=== PATIENT | male | born 1985 | race Caucasian/White ===

== ENCOUNTER 2016-06-21 21:55 | Emergency (ER) | payer OTHER ==
[2016-06-21] MEDS: ASPIRIN TABLET 325 MG TAB PO ONE (22:05)
[2016-06-21] MEDS ORDERED: SODIUM CHLORIDE 0.9% (FLUSH) 10 ML SYG IV PRN (22:18)
[2016-06-21] MEDS ORDERED: NITROGLYCERIN 0.4 MG 25 EA TAB SL ONE (22:18)
[2016-06-21] MEDS ORDERED: ONDANSETRON INJ 4 MG/2 ML VIAL IV ONE (22:18)
[2016-06-21 22:21] VITALS: O2SAT 98
--- NOTE | 2016-06-21 22:59 | ED.PDOC ---
History of Present Illness - General Chief Complaint: Chest Pain/PR Stated Complaint: chest pain Time Seen by Provider: 06/21/16 22:52 Source: patient Exam Limitations: no limitations - History of Present Illness Initial Comments: Melissa 30 y/o male with no chronic medical problem stated he had been under lots of stress recently with his ex girlfriend whom he had a son today when he went to visit his son today had an argument and doesnt want her to see his son.And mentioned also that she is about to move to [place] and got stress out then had burning chest pain symptoms non radiating no diaphoresis no sob no nausea, vomiting.He also stated that they are not legally . Timing/Duration: 1-3 hours Severity/Quality: burning Location: central Chest Pain Radiation: no radiation Activities at Onset: emotional stress Prior Chest Pain/Cardiac Workup: no prior chest pain Improving Factors: nothing, other - he was chest pain free in er Worsening Factors: other - as per hpi-stress out Nitro Today/Relief: no nitro taken today Aspirin Treatment Today: provided by ED Associated Symptoms: denies symptoms Allergies/Adverse Reactions: Allergies Influenza Vaccines Allergy (Verified 06/21/16 22:54) Morphine Allergy (Verified 06/21/16 22:54) Home Medications: Ambulatory Orders NK [NK] 09/15/15 Review of Systems - Review of Systems Constitutional: States: no symptoms reported EENTM: States: no symptoms reported Respiratory: States: no symptoms reported Cardiology: States: see HPI Gastrointestinal/Abdominal: States: no symptoms reported Genitourinary: States: no symptoms reported Musculoskeletal: States: no symptoms reported Skin: States: no symptoms reported Neurological: States: no symptoms reported Endocrine: States: no symptoms reported Hematologic/Lymphatic: States: no symptoms reported Past Medical History (General) - Patient Medical History Hx Seizures: No Hx Stroke: No Hx Dementia: No Hx Asthma: No Hx of COPD: No Hx Cardiac Disorders: No Hx Congestive Heart Failure: No Hx Pacemaker: No Hx Hypertension: No Hx Thyroid Disease: No Hx Diabetes: No Hx Gastroesophageal Reflux: No Hx Renal Disease: No Hx Cancer: No Hx of HIV: No Hx Hepatitis C: No Hx MRSA: No - Vaccination History Hx Tetanus, Diphtheria Vaccination: Yes Hx Influenza Vaccination: Yes Hx Pneumococcal Vaccination: No - Social History Hx Tobacco Use: Yes Hx Chewing Tobacco Use: No Hx Alcohol Use: No Hx Substance Use: No Hx Substance Use Treatment: No Hx Depression: No Hx Physical Abuse: No Hx Emotional Abuse: No Hx Suspected Abuse: No - Female History Patient : No Family Medical History - Family History Mother Family History: No Known Living Status: Still Living Hx Family;Other: schizophrenic, bioplar Physical Exam - Physical Exam General Appearance: Alert, Anxious, No apparent distress Eyes, Ears, Nose, Throat Exam: PERRL/EOMI, normal ENT inspection, TMs normal, pharynx normal Neck: non-tender, full range of motion, supple Respiratory: chest non-tender, lungs clear, normal breath sounds, no respiratory distress Cardiovascular/Chest: normal peripheral pulses, regular rate, rhythm, no edema, no gallop, no JVD, no murmur Peripheral Pulses: radial,right: 2+, radial,left: 2+ Gastrointestinal/Abdominal: normal bowel sounds, non tender, soft, no organomegaly, no pulsatile mass Extremity: normal range of motion, non-tender Neurologic: no motor/sensory deficits, alert, normal mood/affect, oriented x 3 Skin Exam: normal color, warm/dry Lymphatic: no adenopathy Progress - Results/Orders Results/Orders: 06/21/16 22:18 IV Care:Saline Lock per Protoc QSHIFT Telemetry .ONCE Sodium Chloride 0.9% (Flush) [Saline Flush Syringe] 10 ml IV PRN PRN EKG Stat Pulse Ox Stat 06/21/16 22:19 Pulse Oximetry Assessment DAILY Laboratory Results WBC 9.9 K/mm3 (4.8-10.8) 06/21/16 22:38 RBC 5.02 M/mm3 (4.70-6.10) 06/21/16 22:38 Hgb 16.0 gm/dL (14.0-18.0) 06/21/16 22:38 Hct 47.5 % (42.0-52.0) 06/21/16 22:38 MCV 94.8 fl (80.0-94.0) H 06/21/16 22:38 MCH 31.9 pg (27.0-31.0) H 06/21/16 22:38 MCHC 33.7 g/dL (33.0-37.0) 06/21/16 22:38 RDW 12.4 % (11.5-14.5) 06/21/16 22:38 Plt Count 189 K/mm3 (130-400) 06/21/16 22:38 MPV 9.9 fl (7.40-10.4) 06/21/16 22:38 Absolute Neuts (auto) 6.20 K/uL (1.8-6.8) 06/21/16 22:38 Absolute Lymphs (auto) 2.60 K/uL (1.0-3.4) 06/21/16 22:38 Absolute Monos (auto) 0.90 K/uL (0.2-0.8) H 06/21/16 22:38 Absolute Eos (auto) 0.10 K/uL (0.0-0.4) 06/21/16 22:38 Absolute Basos (auto) 0.10 K/uL (0.0-0.1) 06/21/16 22:38 Neutrophils % 62.8 % (42.0-78.0) 06/21/16 22:38 Lymphocytes % 26.1 % (20.0-50.0) 06/21/16 22:38 Monocytes % 9.4 % (2.0-9.0) H 06/21/16 22:38 Eosinophils % 0.8 % (1.0-5.0) L 06/21/16 22:38 Basophils % 0.9 % (0.0-2.0) 06/21/16 22:38 PT 11.4 SECONDS (9.4-12.5) 06/21/16 22:38 INR 1.010 06/21/16 22:38 PTT (SP) 34.0 SECONDS (25.1-36.5) 06/21/16 22:38 Sodium 139 mmol/L (135-145) 06/21/16 22:38 Potassium 3.7 mmol/L (3.6-5.0) 06/21/16 22:38 Chloride 101 mmol/L (101-111) 06/21/16 22:38 Carbon Dioxide 30 mmol/L (21-31) 06/21/16 22:38 Anion Gap 11.7 (12-18) L 06/21/16 22:38 BUN 11 mg/dL (7-18) 06/21/16 22:38 Creatinine 1.22 mg/dL (0.6-1.3) 06/21/16 22:38 BUN/Creatinine Ratio 9.0 (10-20) L 06/21/16 22:38 Random Glucose 99 mg/dL (70-105) 06/21/16 22:38 Serum Osmolality 277.0 mOsm/L (275-295) 06/21/16 22:38 Calcium 9.6 mg/dL (8.4-10.2) 06/21/16 22:38 Magnesium 1.9 mg/dL (1.8-2.5) 06/21/16 22:38 Creatine Kinase 144 IU/L (38-174) 06/21/16 22:38 CK-MB (CK-2) 1.5 ng/mL (0.0-4.4) 06/21/16 22:38 CK-MB (CK-2) % Not Reportable 06/21/16 22:38 Troponin I < 0.02 ng/mL (0.01-0.05) 06/21/16 22:38 B-Natriuretic Peptide < 5.0 pg/ml (0-100) 06/21/16 22:38 Urine Opiates Screen Negative ng/mL (2000) 06/21/16 22:35 Urine Barbiturates Negative ng/mL (200) 06/21/16 22:35 Ur Phencyclidine Scrn Negative ng/mL (25) 06/21/16 22:35 U Amphetamin/Meth Scrn Negative ng/mL (1000) 06/21/16 22:35 U Benzodiazepines Scrn Negative ng/mL (200) 06/21/16 22:35 U Cocaine Metab Screen Negative ng/mL (300) 06/21/16 22:35 U Cannabinoids Screen Negative ng/mL (50) 06/21/16 22:35 - EKG/XRAY/CT EKG: Sinus, no ST T wave changes Comments: no ischemic or changes suggestive of myocardial injury XRAY: chest - no acute abnormality Departure - Departure Clinical Impression: Chest pain due to psychological stress, Situational anxiety Time of Disposition: 23:53 Disposition: Discharge to Home or Self Care Condition: Good Departure Forms: ED Discharge - Pt. Copy, Patient Portal Self Enrollment Instructions: DI for Anxiety -- Adult, DI for Atypical Chest Pain Home Medications: Ambulatory Orders NK [NK] 09/15/15 Additional Instructions: NEED TO SEE A FAMILY COUNSELOR;RETURN TO EMERGENCY ROOM NEEDED
--- NOTE | 2016-06-21 23:18 | RAD ---
EXAM DESCRIPTION: Chest,1 View CLINICAL HISTORY: Anterior chest wall pain COMPARISON: None FINDINGS: Cardiac silhouette is within normal limits. There is no focal parenchymal or pleural disease. There is no acute osseous process visualized. IMPRESSION: No evidence of acute cardiopulmonary disease. Electronically signed by: Melvin Ann MD 06/21/2016 11:17 PM ACCOUNT DEVELOPMENT ASSOCIATE
[2016-06-21 23:41] VITALS: BP 144/82; TEMP 98.2
[2016-06-22] MEDS: ASPIRIN TABLET 325 MG TAB PO ONE (00:06)
--- NOTE | 2016-06-30 00:23 | RAD ---
EXAM DESCRIPTION: Chest,1 View CLINICAL HISTORY: Anterior chest wall pain COMPARISON: None FINDINGS: Cardiac silhouette is within normal limits. There is no focal parenchymal or pleural disease. There is no acute osseous process visualized. IMPRESSION: No evidence of acute cardiopulmonary disease. Electronically signed by: Melvin Ann MD 06/21/2016 11:17 PM DIRECTOR OF AGRICULTURE
== END 2016-06-22 00:08 | disposition home or self-care (01) ==
LOC: ER 21:55
DX: R07.89 Other chest pain (principal); F41.8 Other specified anxiety disorders; Z87.891 Personal history of nicotine dependence; Z88.6 Allergy status to analgesic agent; Z88.7 Allergy status to serum and vaccine

== ENCOUNTER 2018-06-12 22:37 | Emergency (ER) | payer OTHER ==
--- NOTE | 2018-06-12 22:55 | ED.PDOC ---
History of Present Illness - General Chief Complaint: GI Problem Stated Complaint: swollowed a ring, feels short of breath Time Seen by Provider: 06/12/18 22:52 Source: patient Exam Limitations: no limitations - History of Present Illness Initial Comments: patient comes in today for possible foreign body in his throat. Patient states he was playing with his daughter and one of her rings popped off of her finger. He felt it hit his teeth and is worried that he may have swallowed it. He had no choking or shortness of breath that time. However, they couldn't find the reading and his throat was starting to hurt. Patient admits that he does have some anxiety as it would not is not sure if that was causing to feel a little short of breath but he thought he should come up and get checked out. The patient was sick the last 3 days with sore throat, body aches, and some congestion. Patient states he is actually starting to feel better from that standpoint. He is otherwise healthy and has no other past medical history. He is a smoker. Timing/Duration: 1/2 hour Severity: mild Improving Factors: nothing Worsening Factors: nothing Associated Symptoms: other - sore throat Allergies/Adverse Reactions: Allergies Influenza Vaccines Allergy (Verified 06/21/16 22:54) Morphine Allergy (Verified 06/21/16 22:54) Home Medications: Ambulatory Orders NK 09/15/15 Review of Systems - Review of Systems Constitutional: Denies: chills, fever EENTM: States: throat pain. Denies: ear pain, nose pain Respiratory: States: no symptoms reported. Denies: cough, short of breath, wheezing Cardiology: States: no symptoms reported Gastrointestinal/Abdominal: States: no symptoms reported Past Medical History (General) - Patient Medical History Hx Seizures: No Hx Stroke: No Hx Dementia: No Hx Asthma: No Hx of COPD: No Hx Cardiac Disorders: No Hx Congestive Heart Failure: No Hx Pacemaker: No Hx Hypertension: No Hx Thyroid Disease: No Hx Diabetes: No Hx Gastroesophageal Reflux: No Hx Renal Disease: No Hx Cancer: No Hx of HIV: No Hx Hepatitis C: No Hx MRSA: No - Vaccination History Hx Tetanus, Diphtheria Vaccination: Yes Hx Influenza Vaccination: Yes Hx Pneumococcal Vaccination: No - Social History Hx Tobacco Use: Yes Hx Chewing Tobacco Use: No Hx Alcohol Use: No Hx Substance Use: No Hx Substance Use Treatment: No Hx Depression: No Hx Physical Abuse: No Hx Emotional Abuse: No Hx Suspected Abuse: No - Female History Patient : No Family Medical History - Family History Mother Family History: No Known Living Status: Still Living Hx Family;Other: schizophrenic, bioplar Physical Exam - Physical Exam General Appearance: Alert, Comfortable, No apparent distress Ears, Nose, Throat: nasal congestion, pharyngeal erythema, tonsillar exudate, tonsillar swelling Neck: non-tender, full range of motion, supple, lymphadenopathy (R), lymphadenopathy (L), other - no crepitus Respiratory: chest non-tender, lungs clear, normal breath sounds Cardiovascular/Chest: normal peripheral pulses, regular rate, rhythm, no edema, no gallop, no murmur Gastrointestinal/Abdominal: normal bowel sounds, non tender, soft Progress - Results/Orders Results/Orders: Xray shows no FB Strep was negative Departure - Departure Clinical Impression: Globus sensation Disposition: Discharge to Home or Self Care Condition: Good Departure Forms: ED Discharge - Pt. Copy, Patient Portal Self Enrollment Referrals: Luis Alberto Cueva MD [Referring] - 1-2 Weeks Home Medications: Ambulatory Orders NK 09/15/15
[2018-06-12 22:56] VITALS: TEMP 97.3; O2SAT 100
--- NOTE | 2018-06-12 23:35 | RAD ---
Two views of the soft tissues of the neck HISTORY: Evaluate for foreign body COMPARISON: None FINDINGS: No radiopaque foreign bodies are identified. Prevertebral soft tissues normal in thickness. Upper airway is clear. Osseous structures are unremarkable. IMPRESSION: No radiopaque foreign bodies. Electronically signed by: Dawit Davis DO 06/12/2018 11:33 PM [facility]
[2018-06-12 23:49] VITALS: BP 122/83
== END 2018-06-12 23:49 | disposition home or self-care (01) ==
LOC: ER 22:37
DX: F45.8 Other somatoform disorders (principal); R06.02 Shortness of breath; R07.0 Pain in throat; F41.9 Anxiety disorder, unspecified; F17.200 Nicotine dependence, unspecified, uncomplicated; Z88.5 Allergy status to narcotic agent; Z88.7 Allergy status to serum and vaccine

== ENCOUNTER 2018-12-28 01:21 | Emergency (ER) | payer OTHER ==
--- NOTE | 2018-12-28 02:21 | RAD ---
Neck soft tissue two view on 12/28/2018 CLINICAL INDICATION: Patient possibly swallowed tooth pick COMPARISON: 06/12/2018 FINDINGS: There is slight reversal of the normal cervical lordosis. There is no prevertebral soft tissue swelling. The epiglottis and airway is unremarkable. No definite radiopaque foreign body is noted. If there is high clinical concern for a wooden foreign body consider CT. IMPRESSION: No acute abnormality. Electronically signed by: Mason Garrison 12/28/2018 2:19 AM CDT
[2018-12-28] MEDS ORDERED: PROMETHAZINE HCL INJ 25 MG/ML VIAL IM ONE (02:35)
[2018-12-28] MEDS ORDERED: diphenhydrAMINE HCL 50 MG/ML VIAL ONE (02:35)
[2018-12-28] MEDS ORDERED: LIDOCAINE HCL 2% (MOUTH-THROAT) 15 ML UD MT ONE (02:35)
[2018-12-28] MEDS ORDERED: LIDOCAINE HCL 2% (MOUTH-THROAT) 15 ML UD ONE (02:35)
--- NOTE | 2018-12-28 02:39 | ED.PDOC ---
History of Present Illness - General Chief Complaint: ENT Problem Stated Complaint: throat pain Time Seen by Provider: 12/28/18 02:36 Exam Limitations: no limitations - History of Present Illness Initial Comments: HE IS AFRAID THAT HE MIGHT HAVE SWALLOWED A TOOTHPICK. EARLIER HE ATE A PIECE OF CAKE AND NOTED THAT A TOOTHPICK WAS ON THE CAKE. HE EXAMINED THE TOOTHPICK AND IT SEEMED INTACT. ABOUT THIRTY MINUTES LATER HE HAD A SORE THROAT AND NOW HE IS HERE AT THE ED. NO DROOLING, NO STRIDOR AND NO WHEEZING. HE SUFFERS OF ANXIETY. Timing/Duration: gradual EENT Location: throat Prearrival Treatment: no prearrival treatment Improving Factors: nothing Worsening Factors: nothing Associated Symptoms: denies symptoms Allergies/Adverse Reactions: Allergies Influenza Vaccines Allergy (Verified 06/21/16 22:54) Morphine Allergy (Verified 06/21/16 22:54) Home Medications: Ambulatory Orders NK 09/15/15 Review of Systems - Review of Systems Constitutional: States: no symptoms reported EENTM: States: throat pain Respiratory: States: no symptoms reported Cardiology: States: no symptoms reported Gastrointestinal/Abdominal: States: no symptoms reported Genitourinary: States: no symptoms reported Musculoskeletal: States: no symptoms reported Skin: States: no symptoms reported Neurological: States: anxiety Past Medical History (General) - Patient Medical History Hx Seizures: No Hx Stroke: No Hx Dementia: No Hx Asthma: No Hx of COPD: No Hx Cardiac Disorders: No Hx Congestive Heart Failure: No Hx Pacemaker: No Hx Hypertension: No Hx Thyroid Disease: No Hx Diabetes: No Hx Gastroesophageal Reflux: No Hx Renal Disease: No Hx Cancer: No Hx of HIV: No Hx Hepatitis C: No Hx MRSA: No Surgical History: appendectomy - Vaccination History Hx Tetanus, Diphtheria Vaccination: Yes Hx Influenza Vaccination: Yes Hx Pneumococcal Vaccination: No - Social History Hx Tobacco Use: Yes Hx Chewing Tobacco Use: No Hx Alcohol Use: No Hx Substance Use: No Hx Substance Use Treatment: No Hx Depression: No Hx Physical Abuse: No Hx Emotional Abuse: No Hx Suspected Abuse: No - Female History Patient : No - Triage Comment ED Triage Comment: thinks possibly swallowed toothpick that was in piece of cake. No difficulty swallowing presently per pt, just "hurts" at side of neck. Family Medical History - Family History Mother Family History: No Known Living Status: Still Living Hx Family;Other: schizophrenic, bioplar Physical Exam - Physical Exam General Appearance: Alert, Anxious, Well Developed, Well Groomed, Well Hydrated, Well Nourished Eye Exam: bilateral normal Ear Exam: bilateral ear: auricle normal Nasal Exam: normal inspection Throat Exam: normal mouth inspection, pharynx normal Cardiovascular/Respiratory: regular rate, rhythm, no M/R/G Abdominal Exam: non-tender, no organomegaly Neurologic: ent physician II-XII nml as tested, alert Skin Exam: normal color Progress - Progress Progress: 12/28/18 02:40 X RAY IS NEGATIVE FOR FOREIGN BODY Departure - Departure Clinical Impression: Anxiety, Sensation of foreign body in larynx Time of Disposition: 02:41 Disposition: Discharge to Home or Self Care Condition: Good Departure Forms: ED Discharge - Pt. Copy, Patient Portal Self Enrollment Instructions: Anxiety, Adult (DC) Home Medications: Ambulatory Orders NK 09/15/15
[2018-12-28] MEDS ORDERED: diphenhydrAMINE HCL 50 MG/ML VIAL IM ONE (02:41)
[2018-12-28 02:48] VITALS: BP 112/74; TEMP 98; O2SAT 98
== END 2018-12-28 02:48 | disposition home or self-care (01) ==
LOC: ER 01:21
DX: R09.89 Other specified symptoms and signs involving the circulatory and respiratory systems (principal); F41.9 Anxiety disorder, unspecified; R07.0 Pain in throat; M54.2 Cervicalgia; Z87.891 Personal history of nicotine dependence; Z88.7 Allergy status to serum and vaccine; Z88.5 Allergy status to narcotic agent
CPT/HCPCS: 70360; J1200

== ENCOUNTER 2019-01-07 21:34 | Emergency (ER) | payer OTHER ==
[2019-01-07] MEDS ORDERED: CARBAMIDE PEROXIDE OTIC 15 ML BTTL ONE ×2 (22:47→23:54)
[2019-01-07 22:55] VITALS: TEMP 97.3; O2SAT 100
[2019-01-07] MEDS ORDERED: CARBAMIDE PEROXIDE OTIC 15 ML BTTL OTIC ONE (23:50)
--- NOTE | 2019-01-08 00:01 | ED.PDOC ---
History of Present Illness - General Chief Complaint: ENT Problem Stated Complaint: ears clogged, left ear achy Time Seen by Provider: 01/07/19 23:58 Source: patient - History of Present Illness Initial Comments: 33 yo male who presents with cc of BL ear fullness and decreased hearing. Ongoing for several days now, worse today, reports hx of similar problem many times in past. Has been told he has earwax buildup and occlusion and is supposed to regularly have his ears cleaned by ENT but admits to not keeping up with this for quite some time. Reports muffled/decreased moderate hearing loss BL. Tried Debrox and gentle ear canal flushes at home with no relief. Reports mild pain to right ear, none to left. No fevers, no other issues. Allergies/Adverse Reactions: Allergies Influenza Vaccines Allergy (Verified 06/21/16 22:54) Morphine Allergy (Verified 06/21/16 22:54) Home Medications: Ambulatory Orders Amoxicillin 875 mg PO BID #10 tab 01/08/19 Review of Systems - Review of Systems Review of Systems: 01/08/19 00:01 see HPI All other Systems: Reviewed and Negative Past Medical History (General) - Patient Medical History Hx Seizures: No Hx Stroke: No Hx Dementia: No Hx Asthma: No Hx of COPD: No Hx Cardiac Disorders: No Hx Congestive Heart Failure: No Hx Pacemaker: No Hx Hypertension: No Hx Thyroid Disease: No Hx Diabetes: No Hx Gastroesophageal Reflux: No Hx Renal Disease: No Hx Cancer: No Hx of HIV: No Hx Hepatitis C: No Hx MRSA: No - Vaccination History Hx Tetanus, Diphtheria Vaccination: Yes Hx Influenza Vaccination: Yes Hx Pneumococcal Vaccination: No - Social History Hx Tobacco Use: Yes Hx Chewing Tobacco Use: No Hx Alcohol Use: No Hx Substance Use: No Hx Substance Use Treatment: No Hx Depression: No Hx Physical Abuse: No Hx Emotional Abuse: No Hx Suspected Abuse: No - Female History Patient : No Family Medical History - Family History Mother Family History: No Known Living Status: Still Living Hx Family;Other: schizophrenic, bioplar Physical Exam - Physical Exam General Appearance: Alert, No apparent distress Eye Exam: bilateral normal Ear Exam: bilateral ear: auricle normal, other - copious earwax noted BL obscuring visualization of TMs Nasal Exam: normal inspection Throat Exam: normal mouth inspection, pharynx normal Neck: non-tender, full range of motion, supple Cardiovascular/Respiratory: regular rate, rhythm, normal breath sounds, no respiratory distress Abdominal Exam: non-tender, no organomegaly Neurologic: no motor/sensory deficits, alert, normal mood/affect, oriented x 3 Skin Exam: normal color, warm/dry Progress - Progress Progress: 01/08/19 00:02 BL cerumen impaction -causing moderate BL hearing loss acutely -will try to flush out with use of cerumen softener and warm water flushes 01/08/19 01:09 -Flushed BL ears copiously - was able to fully clear all cerumen from right ear and restore to normal hearing. Left ear - applied Debrox and let sit for 5 minutes followed by copious gentle flushing of warm water and able to clear large amount of cerumen and return to near normal hearing and visualize approx 40% of left TM which appeared slightly erythematous as did the right. Will dc flushes here, send home on amoxicillin 875 mg BID x5 days. Advised continued Debrox and gentle flushing attempts at home tomorrow. F/u closely with PCP next week and will likely need ENT referral to establish care. Departure - Departure Clinical Impression: Impacted cerumen of both ears Otitis media Qualifiers: Otitis media type: serous Chronicity: acute Laterality: bilateral Recurrence: non-recurrent Qualified Code(s): H65.03 - Acute serous otitis media, bilateral Time of Disposition: 00:15 Disposition: Discharge to Home or Self Care Condition: Good Departure Forms: ED Discharge - Pt. Copy, Patient Portal Self Enrollment Instructions: Ear Wax Impaction (DC) Prescriptions: Amoxicillin 875 mg PO BID #10 tab Home Medications: Ambulatory Orders Amoxicillin 875 mg PO BID #10 tab 01/08/19
[2019-01-08 00:25] VITALS: BP 105/63
== END 2019-01-08 01:18 | disposition home or self-care (01) ==
LOC: ER 21:34
DX: H65.03 Acute serous otitis media, bilateral (principal); H61.23 Impacted cerumen, bilateral; Z87.891 Personal history of nicotine dependence; Z88.7 Allergy status to serum and vaccine; Z88.5 Allergy status to narcotic agent

== ENCOUNTER 2020-03-23 06:18 | Emergency (ER) | payer OTHER ==
[2020-03-23] MEDS ORDERED: CIPROFLOXACIN 500 MG TAB PO ONE (06:36)
[2020-03-23] MEDS ORDERED: SULFA/TRIMETH 800/160 (DS) TAB 1 EA TAB PO ONE (06:36)
[2020-03-23 06:37] VITALS: BP 126/93; TEMP 98; O2SAT 100
--- NOTE | 2020-03-23 06:39 | ED.PDOC ---
History of Present Illness - General Chief Complaint: Skin/Abrasion/Tear Time Seen by Provider: 03/23/20 06:20 Source: patient Exam Limitations: no limitations - History of Present Illness Initial Comments: The patient is a 34-year-old male presented to the emergency room secondary to a small abscess forming in the dorsal aspect of the right distal lateral foot just above the metatarsal phalangeal joint #5. He has been having little bit of pain in the area for the last for 5 days. He does have significant athlete's foot bilaterally. No fever. No real extending erythema. No significant pain with movement of the underlying digit to indicate infection of the bone or joint. Timing/Duration: gone - 48 hours, other Severity: moderate Worsening Factors: nothing Associated Symptoms: denies symptoms Allergies/Adverse Reactions: Allergies Influenza Vaccines Allergy (Verified 06/21/16 22:54) Morphine Allergy (Verified 06/21/16 22:54) Home Medications: Ambulatory Orders Amoxicillin 875 mg PO BID #10 tab 01/08/19 Ciprofloxacin [Cipro] 500 mg PO BID #20 tab 03/23/20 Sulfa/Trimeth 800/160 (Ds) Tab [Bactrim DS Tab] 1 ea PO BID #20 tab 03/23/20 Review of Systems - Review of Systems Constitutional: States: no symptoms reported EENTM: States: no symptoms reported Respiratory: States: no symptoms reported Cardiology: States: no symptoms reported Gastrointestinal/Abdominal: States: no symptoms reported Genitourinary: States: no symptoms reported Musculoskeletal: States: no symptoms reported Skin: States: see HPI Neurological: States: no symptoms reported Endocrine: States: no symptoms reported All other Systems: No Change from Baseline Past Medical History (General) - Patient Medical History Hx Seizures: No Hx Stroke: No Hx Dementia: No Hx Asthma: No Hx of COPD: No Hx Cardiac Disorders: No Hx Congestive Heart Failure: No Hx Pacemaker: No Hx Hypertension: No Hx Thyroid Disease: No Hx Diabetes: No Hx Gastroesophageal Reflux: No Hx Renal Disease: No Hx Cancer: No Hx of HIV: No Hx Hepatitis C: No Hx MRSA: No - Vaccination History Hx Tetanus, Diphtheria Vaccination: Yes Hx Influenza Vaccination: Yes Hx Pneumococcal Vaccination: No - Social History Hx Tobacco Use: Yes Hx Chewing Tobacco Use: No Hx Alcohol Use: No Hx Substance Use: No Hx Substance Use Treatment: No Hx Depression: No Hx Physical Abuse: No Hx Emotional Abuse: No Hx Suspected Abuse: No - Female History Patient : No Family Medical History - Family History Mother Family History: No Known Living Status: Still Living Hx Family;Other: schizophrenic, bioplar Physical Exam - Physical Exam General Appearance: Alert, Comfortable, No apparent distress Eye Exam: bilateral normal Ears, Nose, Throat: hearing grossly normal, normal pharynx Respiratory: no respiratory distress, no accessory muscle use Cardiovascular/Chest: normal peripheral pulses, no edema Peripheral Pulses: dorsalis pedis,right: 2+, dorsalis pedis,left: 2+ Rectal Exam: deferred Extremity: normal range of motion, no pedal edema, no calf tenderness, normal capillary refill 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 This is likely due to skin breaks caused by his athlete's foot. We were able to unroof it and express a small amount of pus which was cultured. He does need to wash it at least 3 times daily with an antibacterial soap and water. Afterwards he needs to cover it with Neosporin and a Band-Aid. He also needs to use an antifungal foot powder or foot spray 3- 4 times daily between his toes. he needs to wash his socks on high heat as well. He needs to be reevaluated by his primary care doctor in 4 or 5 days to make sure the area is healing properly. If not then further evaluation may be warranted. For now he is going to be placed on double coverage of Bactrim and ciprofloxacin for treatment of a small abscess site. ER warnings are given. [email or web address] [id number] Departure - Departure Clinical Impression: Foot abscess, right Disposition: Discharge to Home or Self Care Condition: Fair Departure Forms: ED Discharge - Pt. Copy, Patient Portal Self Enrollment Instructions: DI for Abrasion, Abscess Incision and Drainage (DC) Diet: regular diet Activity: increase activity as tolerated Referrals: Eleni Cormier NP [Primary Care Provider] - 1-2 Weeks Prescriptions: Sulfa/Trimeth 800/160 (Ds) Tab [Bactrim DS Tab] 1 ea PO BID #20 tab Ciprofloxacin [Cipro] 500 mg PO BID #20 tab Home Medications: Ambulatory Orders Amoxicillin 875 mg PO BID #10 tab 01/08/19 Ciprofloxacin [Cipro] 500 mg PO BID #20 tab 03/23/20 Sulfa/Trimeth 800/160 (Ds) Tab [Bactrim DS Tab] 1 ea PO BID #20 tab 03/23/20 Additional Instructions: The patient is a 34-year-old male presents emergency room secondary to a small abscess forming to the dorsal lateral distal aspect of the right foot over the last couple of days. This is likely due to skin breaks caused by his athlete's foot. We were able to unroof it and express a small amount of pus which was cultured. He does need to wash it at least 3 times daily with an antibacterial soap and water. Afterwards he needs to cover it with Neosporin and a Band-Aid. He also needs to use an antifungal foot powder or foot spray 3- 4 times daily between his toes. he needs to wash his socks on high heat as well. He needs to be reevaluated by his primary care doctor in 4 or 5 days to make sure the area is healing properly. If not then further evaluation may be warranted. For now he is going to be placed on double coverage of Bactrim and ciprofloxacin for treatment of a small abscess site. ER warnings are given.
== END 2020-03-23 06:48 | disposition home or self-care (01) ==
LOC: ER 06:18
DX: L02.611 Cutaneous abscess of right foot (principal); B35.3 Tinea pedis; Z87.891 Personal history of nicotine dependence; Z88.7 Allergy status to serum and vaccine; Z88.5 Allergy status to narcotic agent